=== PATIENT | female | born 1990 | race African-American/Black ===

== ENCOUNTER 2016-12-06 20:30 | Emergency (ER) | payer OTHER ==
--- NOTE | 2016-12-06 21:21 | PD ---
HPI Chief Complaint Contractions Date Seen: Dec 06, 2016 Time Seen: 21:17 Travel History International Travel<30 Days: No Contact w/Intl Traveler<30Days: No Known Affected Area: No History of Present Illness HPI Patient is a 26-year-old black female at 37 weeks sees Ritu Moran for care. She presents c/o contractions, denies bleeding or ruptured membranes. heart rate tracing is reactive contractions about every 7 or 8 minutes Weeks Gestation: 37 Para: 0 : 3 History Obstetric History Obstetric History 2 early AB's Social History Alcohol Use: No Tobacco Use: No Substance Abuse: No Review of Systems General / Constitutional: No: Fever, Weight Gain, Chills, Other Eyes: No: Diploplia, Blurred Vision, Visual changes, Pain, Photophobia HENT: No: Headaches, Vertigo, Lightheadedness Cardiovascular: No: Irregular Rhythm, Chest Pain or Discomfort, Palpitations, Tachycardia, Syncope, Varicosities, Edema, Cyanosis Respiratory: No: Cough, Short of Breath, Other Gastrointestinal: No: Nausea, Vomiting, Diarrhea Genitourinary: No: Decreased Urinary Output, Oliguria Musculoskeletal: No: Limited ROM, Weakness, Cramping, Edema, Pain Skin: No Rash, No Itching, No Dryness, No Lumps, No Change in Pigmentation, No Change in Nails, No Alopecia, No Lesions Neurologic: No: Weakness, Dizziness, Syncope, Focal Abnormalities, Coordination Problem, Headache, Slurred Speech, Seizures Psychiatric: No: Depression, Suicidal Ideations, Homicidal Ideation Endocrine: No: Heat Intolerance, Cold Intolerance, Polydipsia, Polyuria, Other Physical Exam Narrative GENERAL: Well-nourished, well-developed patient. SKIN: Warm and dry. HEAD: Normocephalic and atraumatic. EYES: No scleral icterus. No injection or drainage. ENT: No nasal drainage noted. Mucous membranes pink. Airway patent. NECK: Supple, trachea midline. No JVD. CARDIOVASCULAR: Regular rate and rhythm without murmurs, gallops, or rubs. RESPIRATORY: Breath sounds equal bilaterally. No accessory muscle use. BREASTS: Bilateral exam showed no masses , no retractions, no nipple discharge. ABDOMEN/GI: Abdomen soft, non-tender, bowel sounds present, no rebound, no guarding Gravid to [-37] weeks size Fundal Height: [-37] GENITOURINARY: External Genitalia: intact and normal in appearance BUS glands: [-] Cervix: [-Closed] Dilatation: [-Closed] Effacement: [-] Thick Station: [-3] Membranes: [intact ] Uterine Contractions: [-q 7 min] FHT's: Category: [1-] Baseline: [-133] Reactive: [-yes] Variability: [mod-] Decels: [none-] EXTREMITIES: No cyanosis or edema. BACK: Nontender without obvious deformity. No CVA tenderness. NEUROLOGICAL: Awake and alert. Motor and sensory grossly within normal limits. Five out of 5 muscle strength in all muscle groups. Normal speech. MDM Interpretation(s) Patient is a 26-year-old black female at 37 weeks presents planning contractions. Denies bleeding or ruptured membranes. heart rate tracing is reactive and she is marina every 7-8 minutes. Cervix is closed and high Plan Patient was offered a pain shot if she wanted it for relief she didn't care for that she will use Tylenol liberally, increase fluid intake, heating pad on low, and bedrest much possible. She is to return for worsening symptoms Diagnosis Diagnosis: Primary Impression: False labor Disposition: DISCHARGE HOME Condition: Stable Heber Hernandez II, MD Dec 06, 2016 21:20
== END 2016-12-07 00:33 | disposition home or self-care (01) ==
LOC: HOBED 20:30
DX: O47.03 False labor before 37 completed weeks of gestation, third trimester (principal); Z3A.37 37 weeks gestation of pregnancy
CPT/HCPCS: 59025

== ENCOUNTER 2016-12-26 03:14 | Inpatient (IN) | payer MEDICAID, OTHER ==
[~2016-12-26] VITALS: Ht 170.2 cm; Wt 83.5 kg
[2016-12-26] MEDS ORDERED: LIDOCAINE HCL 1% 50 ML VIAL ONE (03:28)
[2016-12-26] MEDS ORDERED: LACTATED RINGER'S 1000 ML INJ 1,000 ML IV SCH (03:46)
[2016-12-26] MEDS ORDERED: LACTATED RINGER'S 1000 ML INJ 1,000 ML IV PRN (03:46)
--- NOTE | 2016-12-26 03:46 | PD ---
HPI Chief Complaint Contractions and rupture membranes Date Seen: Dec 26, 2016 Time Seen: 03:42 Travel History International Travel<30 Days: No Contact w/Intl Traveler<30Days: No Known Affected Area: No History of Present Illness HPI 26-year-old who is at 40 weeks and 2 days comes in today complaining of contractions for several hours associated with rupture membranes. After membranes was clear fluid and occurred at 1:45 AM this morning. Patient is group B strep negative and denies any antepartum complications. Patient sees Ritu Moran as her provider. Weeks Gestation: 40 Para: 0 : 3 History Past Medical History Medical History: Denies Significant Hx Past Surgical History Surgical History: No Previous Surgery Family History Family History: Negative Social History Alcohol Use: No Tobacco Use: No Substance Abuse: No Review of Systems Except as stated in HPI: all other systems reviewed are Neg Physical Exam Narrative GENERAL: Well-nourished, well-developed patient. SKIN: Warm and dry. HEAD: Normocephalic and atraumatic. EYES: No scleral icterus. No injection or drainage. ENT: No nasal drainage noted. Mucous membranes pink. Airway patent. NECK: Supple, trachea midline. No JVD. CARDIOVASCULAR: Regular rate and rhythm without murmurs, gallops, or rubs. RESPIRATORY: Breath sounds equal bilaterally. No accessory muscle use. ABDOMEN/GI: Abdomen soft, non-tender, bowel sounds present, no rebound, no guarding Gravid to [40-] weeks size Fundal Height: [-] GENITOURINARY: External Genitalia: intact and normal in appearance BUS glands: [Normal-] Cervix: [Posterior-] Dilatation: [4-5-] Effacement: [-80] Station: [-2-] Presentation: [Cephalic-] Membranes: [ruptured] Uterine Contractions: [-Every 5 minutes] FHT's: Category: [1-] Baseline: [-140] Reactive: [Moderate-] Variability: [-Moderate] Decels: [-Absent] EXTREMITIES: No cyanosis or edema. BACK: Nontender without obvious deformity. No CVA tenderness. NEUROLOGICAL: Awake and alert. Motor and sensory grossly within normal limits. Five out of 5 muscle strength in all muscle groups. Normal speech. Data Data Vital Signs Reviewed: Yes Orders Orders Lidocaine 1% Inj (50 Ml) (Xylocaine 1% I (12/26/16 03:28) Ob (2e) Additional Admit Info (12/26/16 03:29) Group B Strep: Negative MDM Medical Record Reviewed: Yes Plan 26-year-old with rupture membranes in active labor, group B strep negative Patient desires natural labor at this point but does not rule out epidural for use later Diagnosis Diagnosis: Primary Impression: 40 weeks gestation of Additional Impressions: Irregular uterine contractions Rupture of membranes with clear amniotic fluid Amparo Duarte MD Dec 26, 2016 03:46
[2016-12-26] MEDS ORDERED: PREN29TA PO (03:59)
[2016-12-26] MEDS ORDERED: CITRIC ACID-SODIUM CITRATE LIQ 30 ML UDC PO SCH (04:00)
[2016-12-26] MEDS ORDERED: OXYTOCIN 30 UNITS-500ML PREMIX 500 ML IV ONE ×2 (04:00→04:45)
[2016-12-26] MEDS ORDERED: LIDOCAINE HCL 1% 50 ML VIAL INFIL PRN (04:00)
[2016-12-26] MEDS ORDERED: SODIUM CHLORID 0.9% 500 ML INJ 500 ML IV PRN (04:00)
[2016-12-26] MEDS ORDERED: MINERAL OIL 10 ML VIAL TOPICAL PRN (04:00)
[2016-12-26] MEDS ORDERED: LIDOCAINE HCL 1% 50 ML VIAL I-DERMAL PRN (04:00)
[2016-12-26] MEDS ORDERED: ONDANSETRON HCL 4 MG/2 ML VIAL IV PRN (04:00)
[2016-12-26] MEDS ORDERED: SODIUM CHLOR 0.9% 1000 ML INJ 1,000 ML IV PRN (04:06)
[2016-12-26 04:16] LABS: AUTOMATED NEUTROPHIL # 3.6 TH/MM3 (1.8-7.7); BASOPHIL % 0.3 % (0.0-2.0); EOSINOPHIL # 0.1 TH/MM3 (0-0.4); EOSINOPHIL % 1.8 % (0.0-4.0); HEMATOCRIT 39.6 % (35.0-46.0); HEMO FLAGS DIFF FINAL; LYMPH % 41.8 % (9.0-44.0); LYMPHOCYTE # 3.3 TH/MM3 (1.0-4.8); MEAN CELL VOLUME 80.4 FL (80.0-100.0); MEAN CORPUSCULAR HEMOGLOBIN 26.6 PG (27.0-34.0); MEAN CORPUSCULAR HGB CONC 33.1 % (32.0-36.0); MONO % 10.3 % (0.0-8.0); NEUT % 45.8 % (16.0-70.0); PLATELET COUNT 268 TH/MM3 (150-450); RED BLOOD COUNT 4.92 MIL/MM3 (4.00-5.30); RED CELL DISTRIBUTION WIDTH 13.8 % (11.6-17.2); WHITE BLOOD COUNT 7.9 TH/MM3 (4.0-11.0)
[2016-12-26] MEDS ORDERED: WITCH HAZEL 50%/GLYCERIN 12.5% 40 PAD JAR TOPICAL PRN (04:45)
[2016-12-26] MEDS ORDERED: ALUMINUM/MAGNESIUM/SIMETH 30 ML CUP PO PRN (04:45)
[2016-12-26] MEDS ORDERED: DOCUSATE SODIUM 50 MG/SENNA 8.6 MG TAB PO PRN (04:45)
[2016-12-26] MEDS ORDERED: OXYTOCIN 30 UNITS-500ML PREMIX 500 ML IV SCH (04:45)
[2016-12-26] MEDS ORDERED: oxyCODONE/ACETAMINOPHEN 5 MG/325 MG TAB PO PRN (04:45)
[2016-12-26] MEDS ORDERED: ONDANSETRON ODT 4 MG TAB PO PRN (04:45)
[2016-12-26] MEDS ORDERED: ZOLPIDEM TARTRATE 5 MG TAB PO PRN (04:45)
[2016-12-26] MEDS ORDERED: BENZOCAINE 20% TOPICAL SPRAY 60 ML CAN TOPICAL PRN (04:45)
[2016-12-26] MEDS ORDERED: ACETAMINOPHEN 325 MG TAB PO PRN (04:45)
[2016-12-26] MEDS ORDERED: SODIUM CHLORIDE 0.9% FLUSH 10 ML FLUSH IV FLUSH PRN (04:45)
--- NOTE | 2016-12-26 04:49 | PD.OB.DELI ---
Weeks gestation: 40 Gest age assessed date: Dec 26, 2016 Gest age assessed time: 03:30 Pt started active labor?: Yes Medical induction of labor?: No Artificial rupture of membrane: No Anesthesia: None Episiotomy: None Vaginal Delivery: Normal, Spontaneous, Precipitous Presentation: Occiput anterior, Vertex Nuchal Cord: None Delayed cord clamping (45 sec): No : Female Delivery date: Dec 26, 2016 Delivery time: 04:18 One Minute : 8 Five Minute : 9 Placenta: Spontaneous delivery, Intact, 3 vessel cord Laceration: Vaginal laceration (periurethral bilaterally and 6 o'clock position ), 1 deg Repair: Chromic interrupted Estimated blood loss: 200 mL Additional Information Delivered by Drs. Tracy and Jayla. Supervised by Dr. Duarte. Lo Tracy MD R1 Dec 26, 2016 04:49
[2016-12-26] MEDS: IBUPROFEN 600 MG TAB PO PRN ×3 (05:32→23:35)
--- NOTE | 2016-12-26 05:58 | HHI.HP ---
History & Physical H&P HPI Chief Complaint Contractions and rupture membranes Date Seen: Dec 26, 2016 Time Seen: 03:42 Travel History International Travel<30 Days: No Contact w/Intl Traveler<30Days: No Known Affected Area: No History of Present Illness HPI 26-year-old who is at 40 weeks and 2 days comes in today complaining of contractions for several hours. Spontaneous rupture at 1:45 AM this morning; clear fluid per patient. Patient is group B strep negative and denies any antepartum complications. Patient sees Ritu Moarn as her provider. Weeks Gestation: 40 Para: 0 : 3 History Past Medical History Medical History: Asthma - last inhaler use: one year ago Past Surgical History Surgical History: No Previous Surgery Family History Family History: Negative Social History Alcohol Use: No Tobacco Use: No Substance Abuse: No Review of Systems Except as stated in HPI: all other systems reviewed are Neg Physical Exam Narrative GENERAL: Well-nourished, well-developed patient. SKIN: Warm and dry. HEAD: Normocephalic and atraumatic. EYES: No scleral icterus. No injection or drainage. ENT: No nasal drainage noted. Mucous membranes pink. Airway patent. NECK: Supple, trachea midline. No JVD. CARDIOVASCULAR: Regular rate and rhythm without murmurs, gallops, or rubs. RESPIRATORY: Breath sounds equal bilaterally. No accessory muscle use. ABDOMEN/GI: Abdomen soft, non-tender, bowel sounds present, no rebound, no guarding Gravid to [40-] weeks size Fundal Height: [-] GENITOURINARY: External Genitalia: intact and normal in appearance BUS glands: [Normal-] Cervix: [Posterior-] Dilatation: [10 cm] Effacement: [100%] Station: [0] Presentation: [Cephalic] Membranes: [Ruptured] Uterine Contractions: [Every 3 minutes] FHT's: Category: [1] Baseline: [140] Reactive: [Moderate] Variability: [Moderate] Decels: [Absent] EXTREMITIES: No cyanosis or edema. BACK: Nontender without obvious deformity. No CVA tenderness. NEUROLOGICAL: Awake and alert. Motor and sensory grossly within normal limits. Five out of 5 muscle strength in all muscle groups. Normal speech. Data Data Vital Signs Reviewed: Yes Orders Lidocaine 1% Inj (50 Ml) (Xylocaine 1% I (12/26/16 03:28) Ob (2e) Additional Admit Info (12/26/16 03:29) Group B Strep: Negative MDM Medical Record Reviewed: Yes Plan 26-year-old with rupture membranes in active labor, group B strep negative Patient desires natural labor at this point but does not rule out epidural for use later Diagnosis Diagnosis: Primary Impression: 40 weeks gestation of Additional Impressions: Irregular uterine contractions Rupture of membranes with clear amniotic fluid Lo Tracy MD R1 Dec 26, 2016 05:58
[2016-12-26 05:59] LABS: RUBELLA IGG ANTIBODY 0.5 IU/mL (10.0-500.0); RUBELLA STATUS NON-IMMUNE (IMMUNE)
[2016-12-26] MEDS ORDERED: SODIUM CHLORIDE 0.9% FLUSH 10 ML FLUSH IV FLUSH SCH (09:00)
[2016-12-26] MEDS: oxyCODONE/ACETAMINOPHEN 5 MG/325 MG TAB PO PRN ×3 (10:07→23:35)
[2016-12-26 11:00] VITALS: RESP 16
[2016-12-26] MEDS ORDERED: MEASLES, MUMPS, RUBELLA VACCINE 0.5 ML VIAL SQ ONE (16:00)
[2016-12-26] MEDS ORDERED: DIPHTH/TETANUS/ACEL PERTUSSIS (BOOSTER) 0.5 ML VIAL/PFS IM ONE (16:00)
--- NOTE | 2016-12-27 07:20 | HHI.OB ---
Subjective Post Day: 1 Remarks Pt seen and examined this morning. day # 1 AFVSS overnight. Decreased lochia. Denies dysuria. No breast tenderness. She is feeding the baby via breast and model. Appetite good. No nausea or vomiting. Patient denies having a bowel movement, but does endorse gas.. Ambulating well. Denies calf pain or shortness of breath. Otherwise, she is doing well this morning and has no other concerns. Objective Vitals/I&O Vital Signs Date Time Temp Pulse Resp B/P (MAP) Pulse Ox O2 Delivery O2 Flow Rate FiO2 12/26/16 11:00 16 Objective Remarks GENERAL: Well-nourished, well-developed patient. CARDIOVASCULAR: Regular rate and rhythm without murmurs, gallops, or rubs. RESPIRATORY: Breath sounds equal bilaterally. No accessory muscle use. ABDOMEN/GI: Abdomen soft, non-tender. Fundus: Firm, non-tender at umbilicus. GENITOURINARY: Light to moderate bleeding. EXTREMITIES: No cyanosis or edema, non-tender, without signs of DVT. Medications and IVs Current Medications Medications (Trade) Dose Ordered Sig/Roma Route Start Time Stop Time Status Last Admin (NS Flush) 2 ml BID IV FLUSH 12/26/16 09:00 (NS Flush) 2 ml UNSCH PRN IV FLUSH 12/26/16 04:45 (Tylenol) 650 mg Q4H PRN PO 12/26/16 04:45 (Motrin) 600 mg Q6H PRN PO 12/26/16 04:45 12/26/16 23:35 (Percocet 5-325 Mg) 1 tab Q4H PRN PO 12/26/16 04:45 12/26/16 23:35 (Percocet 5-325 Mg) 2 tab Q4H PRN PO 12/26/16 04:45 (Americaine 20% Top Spr) 1 spray Q4H PRN TOPICAL 12/26/16 04:45 12/27/16 04:26 (Tucks Pads) 1 applic QID PRN TOPICAL 12/26/16 04:45 12/27/16 04:26 (Rani-Colace) 2 tab Q12H PRN PO 12/26/16 04:45 12/26/16 16:16 (Ambien) 5 mg HS PRN PO 12/26/16 04:45 (Mag-Al Plus Susp Liq) 15 ml Q8H PRN PO 12/26/16 04:45 (Zofran Odt) 4 mg Q6H PRN PO 12/26/16 04:45 Assessment/Plan Problem List: (1) (spontaneous vaginal delivery) ICD Codes: O80 - Encounter for full-term uncomplicated delivery Assessment and Plan 26 y/o female who is day # 1 s/p . -Continue routine care. -Motrin PRN pain. -Encouraged OOB. Advised pelvic rest for 6 wks. -Re: ctrl, she would like discuss her options at her follow-up appointment. -Anticipate discharge tomorrow with baby. dw MD Rick Lee Ryan H MD R2 Dec 27, 2016 07:20
[2016-12-27] MEDS: IBUPROFEN 600 MG TAB PO PRN (08:47)
[2016-12-27] MEDS: oxyCODONE/ACETAMINOPHEN 5 MG/325 MG TAB PO PRN (08:48)
[2016-12-27] MEDS ORDERED: SENN1TAB PO (09:08)
[2016-12-27] MEDS ORDERED: IBUP-232 PO (09:08)
--- NOTE | 2016-12-27 09:09 | HHI.DCPOC ---
Discharge Care Plan Diagnosis: (1) (spontaneous vaginal delivery) Report Symptoms to Your Doctor -Temperature above 100.5 degrees -Redness, of incision or excessive or foul smelling drainage -Unusual pain or calf pain -Increased vaginal bleeding -Painful or difficulty urinating -Feelings of extreme sadness or anxiety after 2 weeks Goals to Promote Your Health * To prevent worsening of your condition and complications * To maintain your health at the optimal level Directions to Meet Your Goals Take your medications as prescribed Follow your dietary instruction Follow activity as directed Ensure plenty of rest for recovery Drink fluids for hydration Keep your appointments as scheduled Take your immunizations and boosters as scheduled If your symptoms worsen call your PCP, if no PCP go to Urgent Care Center or Emergency Room Smoking is Dangerous to Your Health. Avoid second hand smoke Call the 24-hour crisis hotline for domestic abuse at Roman Cabrera MD R2 Dec 27, 2016 09:09
[2016-12-29 11:03] LABS: BATH SALTS (MDPV) UR NEG (NEG); ECSTASY (MDMA) UR NEG (NEG); HEROIN (6-ACETYLMORPHINE) UR NEG (NEG); K2 SPICE UR NEG (NEG); OBMETHADONE UR NEG (NEG); PHENCYCLIDINE URINE NEG (NEG)
[2016-12-29 11:04] LABS: GABAPENTIN UR NEG (NEG); HYDROMORPHONE U NEG (NEG)
== END 2016-12-27 14:36 | disposition home or self-care (01) | DRG 775 ==
LOC: HOBED 03:14 → H2EB 03:30 → H1EA 06:06
PROVIDERS: ADMIT Obstetrics & Gynecology Obstetrics; ATTEND Obstetrics & Gynecology Obstetrics
PROC: 10E0XZZ Delivery of Products of Conception, External Approach (ICD-10-PCS; principal; 2016-12-26)
PROC: 0UQMXZZ Repair Vulva, External Approach (ICD-10-PCS; 2016-12-26)
PROC: 0HQ9XZZ Repair Perineum Skin, External Approach (ICD-10-PCS; 2016-12-26)
DX: O48.0 Post-term pregnancy (principal); J45.909 Unspecified asthma, uncomplicated; O99.52 Diseases of the respiratory system complicating childbirth; O70.0 First degree perineal laceration during delivery; Z37.0 Single live birth; Z3A.40 40 weeks gestation of pregnancy; O71.82 Other specified trauma to perineum and vulva
CPT/HCPCS: 59025; 80307; 85025; 86592; 86762; 86900; 86901; 90707; 90715; G0481; J2590; J3010; J7120